=== PATIENT | female | born 1995 | race Caucasian/White ===

== ENCOUNTER 2017-03-05 04:15 | Emergency (ER) | payer OTHER ==
[~2017-03-05] VITALS: Ht 180.3 cm; Wt 71.4 kg
[2017-03-05 04:20] VITALS: TEMP 36.9; Ht 180.3 cm; Wt 71.4 kg
[2017-03-05] MEDS ORDERED: SODIUM CHLORIDE 0.9% 1000ML 1,000 ML IV STA (04:32)
[2017-03-05] MEDS ORDERED: ONDANSETRON INJ 2 MG/ML 2 ML VIAL IV STA (04:32)
[2017-03-05] MEDS ORDERED: BCPILLS PO (04:44)
--- NOTE | 2017-03-05 04:46 | EMERGENCY ROOM VISIT NOTE ---
History Report prepared by Jose: Hillary Armijo Under the Supervision of: Dr. Amanda Sanchez D.O. First contact with patient: 04:23 Chief Complaint: ABDOMINAL PAIN Stated Complaint: ACHES,STOMACH PAIN,DIARRHEA,CHILLS,FEVER Nursing Triage Summary: pt reports NVD X 3 days , today started with fever and chills , able to keep food and liquid down but with decreased appetite History of Present Illness The patient is a 21 year old female who presents to the Emergency Room with complaints of an episode of abdominal pain starting two days ago. She reports that the pain feels like someone is ringing out her stomach. She currently rates her pain as a 7/10 in severity.The patient states that she has been having diarrhea, nausea, vomiting, chills, lack of appetite, sore throat, and body aches. The patient denies cough, being around anyone else who is sick, hematochezia, blood in her vomit, and alcohol use in the past few days. She notes she just finished a normal period. Source of History: patient Onset: two days ago Position: abdomen Symptom Intensity: 7/10 Quality: other (someone ringing out her stomach) Timing: other (episode) Associated Symptoms: + chills, + sorethroat, + nausea, + vomiting, + diarrhea, No cough, No hematochezia Note: The patient complains of lack of appetite and body aches. The patient denies being around anyone else who is sick, blood in her vomit, and alcohol use in the past few days. Review of Systems See HPI for pertinent positives & negatives. A total of 10 systems reviewed and were otherwise negative. Past Medical & Surgical The patient denies any past medical history. Family History Patient reports no known family medical history. Social History Smoking Status: Never Smoker Marital Status: in relationship Housing Status: lives with significant other Occupation Status: [employer] student Current/Historical Medications Scheduled Control Pills ( Control Pills), 1 TAB PO DAILY Allergies Coded Allergies: No Known Allergies (Unverified , 03/05/17) Physical Exam Vital Signs Date Time Temp Pulse Resp B/P (MAP) Pulse Ox O2 Delivery O2 Flow Rate FiO2 03/05/17 06:52 96 18 100/61 95 03/05/17 05:27 107 18 111/55 99 Room Air 03/05/17 05:05 101 03/05/17 04:20 36.9 120 20 107/65 96 Room Air Physical Exam HEENT: Head - normocephalic and atraumatic Pupils are equal, round, and reactive to light. Extraocular eye muscles are intact, and sclera are anicteric. Nose - moist nasal mucosa without discharge. Mouth - moist buccal mucosa. Oropharynx is nonerythematous and there is no tonsillar exudate or edema noted. Tonsils are enlarged. Neck: Supple; no JVD, nuchal rigidity, cervical lymphadenopathy. Heart: Tachycardic rate and regular rhythm. There is a normal S1 and S2 with no murmurs, clicks, or gallops appreciated. Lungs: Clear to auscultation bilaterally with no wheezes, rales, or rhonchi. Abdomen: Soft, nondistended, with good bowel sounds. There are no palpable pulsatile masses or hepatosplenomegaly. Epigastric pain with palpation. There is no guarding, rigidity, or rebound noted. There is some mild discomfort with palpation the epigastrium. There is no pain to palpation in the right lower quadrant. Extremities: No evidence of cyanosis, clubbing, or edema. There are easily palpable peripheral pulses. Skin: warm and dry with good turgor and no rashes. Medical Decision & Procedures Laboratory Results 03/05/17 04:45 Red Blood Count 4.60, Mean Corpuscular Volume 87.0, Mean Corpuscular Hemoglobin 29.6, Mean Corpuscular Hemoglobin Concent 34.0, Mean Platelet Volume 9.7, Neutrophils (%) (Auto) 91.1, Lymphocytes (%) (Auto) 5.4, Monocytes (%) (Auto) 1.8, Eosinophils (%) (Auto) 1.5, Basophils (%) (Auto) 0.1, Neutrophils # (Auto) 8.02, Lymphocytes # (Auto) 0.48, Monocytes # (Auto) 0.16, Eosinophils # (Auto) 0.13, Basophils # (Auto) 0.01 03/05/17 04:45 Test 03/05/17 04:45 03/05/17 05:24 White Blood Count 8.81 K/uL (4.8-10.8) Red Blood Count 4.60 M/uL (4.2-5.4) Hemoglobin 13.6 g/dL (12.0-16.0) Hematocrit 40.0 % (37-47) Mean Corpuscular Volume 87.0 fL (80-100) Mean Corpuscular Hemoglobin 29.6 pg (25-34) Mean Corpuscular Hemoglobin Concent 34.0 g/dl (32-36) Platelet Count 229 K/uL (130-400) Mean Platelet Volume 9.7 fL (7.4-10.4) Neutrophils (%) (Auto) 91.1 % Lymphocytes (%) (Auto) 5.4 % Monocytes (%) (Auto) 1.8 % Eosinophils (%) (Auto) 1.5 % Basophils (%) (Auto) 0.1 % Neutrophils # (Auto) 8.02 K/uL (1.4-6.5) Lymphocytes # (Auto) 0.48 K/uL (1.2-3.4) Monocytes # (Auto) 0.16 K/uL (0.11-0.59) Eosinophils # (Auto) 0.13 K/uL (0-0.5) Basophils # (Auto) 0.01 K/uL (0-0.2) RDW Standard Deviation 39.1 fL (36.4-46.3) RDW Coefficient of Variation 12.2 % (11.5-14.5) Immature Granulocyte % (Auto) 0.1 % Immature Granulocyte # (Auto) 0.01 K/uL (0.00-0.02) Anion Gap 6.0 mmol/L (3-11) Est Creatinine Clear Calc Drug Dose 117.5 ml/min Estimated GFR () 113.5 Estimated GFR (Non- 97.9 BUN/Creatinine Ratio 9.9 (10-20) Calcium Level 8.7 mg/dl (8.5-10.1) Total Bilirubin 0.8 mg/dl (0.2-1) Direct Bilirubin 0.2 mg/dl (0-0.2) Aspartate Amino Transf (AST/SGOT) 15 U/L (15-37) Alanine Aminotransferase (ALT/SGPT) 22 U/L (12-78) Alkaline Phosphatase 56 U/L (45-117) Total Protein 6.9 gm/dl (6.4-8.2) Albumin 3.3 gm/dl (3.4-5.0) Lipase 63 U/L (73-393) Urine Color YELLOW Urine Appearance CLEAR (CLEAR) Urine pH 6.0 (4.5-7.5) Urine Specific Clear 1.009 (1.000-1.030) Urine Protein NEG (NEG) Urine Glucose (UA) NEG (NEG) Urine Ketones 2+ (NEG) Urine Occult Blood NEG (NEG) Urine Nitrite NEG (NEG) Urine Bilirubin NEG (NEG) Urine Urobilinogen NEG (NEG) Urine Leukocyte Esterase MODERATE (NEG) Urine WBC (Auto) 10-30 /hpf (0-5) Urine RBC (Auto) 0-4 /hpf (0-4) Urine Hyaline Casts (Auto) 0 /lpf (0-5) Urine Epithelial Cells (Auto) 20-30 /lpf (0-5) Urine Bacteria (Auto) NEG (NEG) Laboratory results per my review. Medications Administered Medications (Trade) Dose Ordered Sig/Dee Route Start Time Stop Time Status Last Admin Dose Admin Sodium Chloride 1,000 ml @ 999 mls/hr Q1H1M STAT IV 03/05/17 04:32 03/05/17 05:32 DC 03/05/17 04:48 999 MLS/HR Ondansetron HCl (Zofran Inj) 4 mg NOW STAT IV 03/05/17 04:32 03/05/17 04:35 DC 03/05/17 04:48 4 MG Procedure 0432: Ordered Zofran Inj 4 mg IV, NSS 1000 ml @ 999 mls/hr IV. ED Course 0429: Past medical records reviewed. The patient was evaluated in room A9B. A complete history and physical exam was performed. An IV lock was initiated and labs are drawn as above. 0432: Ordered Zofran Inj 4 mg IV, NSS 1000 ml @ 999 mls/hr IV. 0623: Upon reevaluation, the patient is feeling much better. She has drank with no problems, no longer feels nauseated, and got some sleep. I discussed findings and results with her. She verbalized agreement of the treatment plan. The patient was discharged home. Medical Decision The patient is a 21 year old female who presents to the Emergency Room with complaints of an episode of abdominal pain starting two days ago. Differential diagnoses include gastritis, pancreatitis, viral illness, gastroenteritis, cholecystitis. LABS: No leukocytosis Normal H&H Lipase 63 Normal renal function and glucose Normal LFTs Urine had 2+ ketones Moderate leukocyte esterase Negative bacteria 10-30 white blood cells The patient describes abdominal pain, loss of appetite, vomiting and diarrhea. The vomiting and diarrhea have subsided but she has some mild epigastric pain and chills. I was concerned for the possibility of dehydration. She was given IV fluids and Zofran. She was feeling much better. She was able to drink without any nausea or vomiting. I have asked the patient to follow-up with [facility] if she has any further symptoms. If her symptoms worsen, she should return here to the ER. Impression Primary Impression: Epigastric abdominal pain Additional Impression: Nausea vomiting and diarrhea Scribe Attestation The scribe's documentation has been prepared under my direction and personally reviewed by me in its entirety. I confirm that the note above accurately reflects all work, treatment, procedures, and medical decision making performed by me. Departure Information Dispostion Home / Self-Care Referrals No Doctor, Assigned (PCP) Forms HOME CARE DOCUMENTATION FORM, IMPORTANT VISIT INFORMATION Patient Instructions My [facility] Additional Instructions Rest. Take a bland diet and plenty of clear liquids Return to the ER for worsening symptoms such as increased pain, fever, increased vomiting or dehydration Problem Qualifiers
[2017-03-05 05:05] LABS: BASO % 0.1 %; BASO ABS # 0.01 K/uL (0-0.2); COMPLETE YES; EOS % 1.5 %; IG% 0.1 %; LYMPH % 5.4 %; LYMPH ABS # 0.48 K/uL (1.2-3.4); MEAN CORPUSCULAR HEMOGLOBIN 29.6 pg (25-34); MEAN PLATELET VOLUME 9.7 fL (7.4-10.4); MONO % 1.8 %; NEUT % 91.1 %; PLATELET COUNT 229 K/uL (130-400); WHITE BLOOD COUNT 8.81 K/uL (4.8-10.8)
[2017-03-05 05:25] LABS: BUN/CREATININE RATIO 9.9 (10-20); CALCIUM 8.7 mg/dl (8.5-10.1); CREATININE 0.86 mg/dl (0.60-1.20); POTASSIUM 3.4 mmol/L (3.5-5.1)
[2017-03-05 05:46] LABS: URINE APPEARANCE CLEAR (CLEAR); URINE BILIRUBIN NEG (NEG); URINE COLOR YELLOW; URINE EPITHELIAL CELL AUTO 20-30 /lpf (0-5); URINE NITRITE NEG (NEG); URINE SPECIFIC GRAVITY 1.009 (1.000-1.030); UROBILINOGEN NEG (NEG)
[2017-03-05 06:23] LABS: MANUAL MICROSCOPIC REQUIRED? NO; REVIEW REQ? NO
[2017-03-05 06:52] VITALS: BP 100/61; PULSE 96; O2SAT 95
== END 2017-03-05 06:52 | disposition home or self-care (01) ==
LOC: C.EDB 04:17 → C.EDA 06:52
DX: R10.13 Epigastric pain (principal); R11.2 Nausea with vomiting, unspecified; R19.7 Diarrhea, unspecified; Z79.3 Long term (current) use of hormonal contraceptives